=== PATIENT | male | born 1970 | race Caucasian/White ===

== ENCOUNTER 2017-06-21 09:50 | Emergency (ER) | payer OTHER, BC ==
[2017-06-21] MEDS ORDERED: Lidocaine 1% 20 ML MDV INJECT ONE (09:59)
--- NOTE | 2017-06-21 10:19 | EDM.PDOC ---
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 Past medical history: As per history of present illness and as reviewed below otherwise noncontributory. Surgical history: As per history of present illness and as reviewed below otherwise noncontributory. Social history: No reported history of drug or alcohol abuse. Family history: As per history of present illness and as reviewed below otherwise noncontributory. Physical exam: Patient states his last tetanus vaccine was 1 year ago. Alert and oriented answering questions appropriately shortness of breath noted is nontoxic in appearance HEENT: Atraumatic, normocehpalic, pupils reactive, negative for conjunctival pallor or scleral icterus, mucous membranes moist, throat clear, neck supple, nontender, trachea midline. Lungs: Clear to auscultation, breath sounds equal bilaterally, chest non tender. Heart: S1S2, regular, negative for clicks, rubs, or JVD. Abdomen: Soft, nondistended, nontender. Negative for masses or hepatossplenmegaly. Negative for costovertebral tenderness. Pelvis: Stable nontender. Genitourinary: Deferred. Rectal: Deferred Extremities: Traumatic injury to the tip of his left third finger, bone is projecting past the skin, negative for cords or calf pain. Neurovascular unremarkable. Neuro: Awake, alert, oriented. Cranial nerves II through XII unremarkable. Cerebellum unremarkable. Motor and sensory unremarkable throughout. Exam nonfocal. Patient tolerated all procedures well, digital block successful for anesthesia effect. Area was then cleansed by the nurse Have contacted Dr. Karine Wilhelm who is in surgical unit at this time. She will come here when she is done in approximately 1-1/2 hours. Scrub nurses said that this needs to be repaired within 6 hours. Have discussed this with the patient and he is quite agreeable. Not having any pain at this time. Dr. Wilhelm is here and attending to this patient she has assummed his care Diagnostics: [X-ray third finger left hand] Therapeutics: [Digital block was placed to the base of the third finger left hand] Impression: [Amputation tip of finger] Plan: []Consult Dr. Wilhelm Discharge to home but per Dr. Wilhelm Placed on Keflex and [place] per Dr. Wilhelm Definitive disposition and diagnosis as appropriate pending reevaluation and review of above. Left Middle Finger Pain Score (Numeric/FACES): 2 - Related Data Allergies Allergy/AdvReac Type Severity Reaction Status Date / Time No Known Allergies Allergy Verified 06/21/17 09:55 Home Meds: Home Meds . [No Known Home Meds] 06/25/16 [History] Past Medical History - Past Health History Medical/Surgical History: Denies Medical/Surgical History HEENT History: Reports: None Cardiovascular History: Reports: None Respiratory History: Reports: None Gastrointestinal History: Reports: None Genitourinary History: Reports: None Musculoskeletal History: Reports: None Neurological History: Reports: None Psychiatric History: Reports: None Endocrine/Metabolic History: Reports: None - Infectious Disease History Infectious Disease History: Reports: None - Past Surgical History Male Surgical History: Reports: Vasectomy Social & Family History - Family History Family Medical History: Noncontributory - Tobacco Use Smoking Status *Q: Current Every Day Smoker Years of Tobacco use: 20 Packs/Tins Daily: 1 - Caffeine Use Caffeine Use: Reports: None - Alcohol Use Days Per Week of Alcohol Use: 2 Number of Drinks Per Day: 2 Total Drinks Per Week: 4 - Recreational Drug Use Recreational Drug Use: No Review of Systems - Review of Systems Review Of Systems: ROS reveals no pertinent complaints other than HPI. ED EXAM, GENERAL - Physical Exam Exam: See Below (See dictation) Course - Vital Signs Last Recorded V/S: Last Vital Signs Temp 36.6 C 06/21/17 12:25 Pulse 69 06/21/17 12:25 Resp 18 06/21/17 12:25 BP 137/82 06/21/17 12:25 Pulse Ox 100 06/21/17 12:25 - Orders/Labs/Meds Meds: Medications Discontinued Medications Generic Name Dose Route Start Last Admin Trade Name Freq PRN Reason Stop Dose Admin Bupivacaine HCl 30 ml 06/21/17 13:26 06/21/17 14:16 Sensorcaine-Mpf 0.25% INJECT 06/21/17 13:27 30 ml ONETIME ONE Administration Bupivacaine HCl Confirm 06/21/17 13:27 06/21/17 14:16 Sensorcaine-Mpf 0.25% Administered 06/21/17 13:28 Not Given Dose 10 ml .ROUTE .STK-MED ONE Cefazolin Sodium/Dextrose 1 gm 50 mls @ 100 mls/hr 06/21/17 12:32 06/21/17 12 :47 / Premix IV 06/21/17 13:01 100 mls/hr ONETIME ONE Administration Lidocaine HCl 20 ml 06/21/17 09:59 06/21/17 10:50 Xylocaine 1% INJECT 06/21/17 10:00 20 ml ONETIME ONE Administration Departure - Departure Time of Disposition: 14:26 Disposition: Home, Self-Care 01 Condition: Good Clinical Impression: Fingertip amputation Qualifiers: Encounter type: initial encounter Qualified Code(s): S68.129A - Partial traumatic metacarpophalangeal amputation of unspecified finger, initial encounter - Discharge Information Referrals: PCP,None [Primary Care Provider] - Forms: ED Department Discharge Additional Instructions: The following information is given to patients seen in the emergency department who are being discharged to home. This information is to outline your options for follow-up care. We provide all patients seen in our emergency department with a follow-up referral. The need for follow-up, as well as the timing and circumstances, are variable depending upon the specifics of your emergency department visit. If you don't have a primary care physician on staff, we will provide you with a referral. We always advise you to contact your personal physician following an emergency department visit to inform them of the circumstance of the visit and for follow-up with them and/or the need for any referrals to a consulting specialist. The emergency department will also refer you to a specialist when appropriate. This referral assures that you have the opportunity for followup care with a specialist. All of these measure are taken in an effort to provide you with optimal care, which includes your followup. Under all circumstances we always encourage you to contact your private physician who remains a resource for coordinating your care. When calling for followup care, please make the office aware that this follow-up is from your recent emergency room visit. If for any reason you are refused follow-up, please contact the [facility] emergency department at and asked to speak to the emergency department charge nurse.
--- NOTE | 2017-06-21 10:37 | CR ---
EXAMINATION: Left hand, third digit HISTORY: Amputation of tip COMPARISON: 06/25/2016 TECHNIQUE: 3 views FINDINGS/IMPRESSION: There is soft tissue amputation of the distal aspect of the third digit with a m ildly comminuted fracture of the underlying tuft of the distal third phalanx. Remaining osseous struc tures and joint spaces appear intact. Bone mineralization is otherwise normal.
[2017-06-21] MEDS ORDERED: ceFAZolin 1 GM Vial IM ONE (11:51)
[2017-06-21] MEDS ORDERED: ceFAZolin 1 GM in Premix Bag 1 BAG IV ONE (12:32)
[2017-06-21] MEDS ORDERED: Bupivacaine 0.25% 10 ML SDV INJECT ONE (13:26)
[2017-06-21] MEDS ORDERED: Bupivacaine 0.25% 10 ML SDV ONE (13:27)
[2017-06-21 14:51] VITALS: BP 137/91
--- NOTE | 2017-06-22 17:52 | PCM.OPNOTE ---
- General Post-Op/Procedure Note Date of Surgery/Procedure: 06/21/17 Operative Procedure(s): revision amputation of left middle finger Pre Op Diagnosis: left middle finger tip amputation - transphalangeal partial Post-Op Diagnosis: Same Anesthesia Technique: Local Primary Surgeon: Stacey Wilhelm Complications: None Condition: Stable
--- NOTE | 2017-06-22 23:28 | OR ---
SURGEON: MODESTO SANDS MD DATE OF PROCEDURE: 06/21/2017 PREOPERATIVE DIAGNOSIS: Left middle finger tip amputation, transphalangeal, partial. POSTOPERATIVE DIAGNOSIS: Left middle finger tip amputation, transphalangeal, partial. PROCEDURE PERFORMED: Revision amputation of left middle finger with direct closure and traction neurectomies. COAT FITTER: None. ANESTHESIA: Local. INDICATIONS: Mr. Guthrie is a 46-year-old gentleman who crushed his left middle finger while working. Risks and benefits of revision amputation were discussed with him, considering this is an open fracture and there is no sufficient tissue for closure. Risks were including, but not limited to bleeding, infection, damage to underlying or overlying structures, possible need for future interventions and possible scarring. He would like to proceed. PROCEDURE IN DETAIL: After informed consent, the area was anesthetized and prepped and draped in normal fashion after a time-out was completed with the patient to confirm side and site. Once adequately irrigated, Littler scissor and pickup was used to transect and dissect circumferentially around the distal phalanx, taking care to leave the distal insertion of the extensor and flexor tendons intact. The distal neurovascular bundles were located on each side and traction neurectomies were performed. The rongeur was then used to trim back the bone itself and the volar skin flap was trimmed to fit to allow appropriate closure over the smooth bone. Again the nail bed was removed, and the insertions of the tendons were preserved. Once the wound was trimmed, an appropriate closure was appreciated. The wound was irrigated and then the skin was closed using 4-0 and 5-0 chromic stitches in a horizontal mattress and interrupted fashion. Once adequate contour was appreciated. The wound was then dressed with Xeroform, fluffs, and a Kerlix gauze dressing. He tolerated this well. All counts and needles were correct at the end of the case. FOLLOWUP INSTRUCTIONS: The patient will see us in approximately 10 days or sooner if any problems, questions, or concerns. He will be maintained on 10-pound weight limit until that time. Note was provided for him along with a prescription for [place] and Keflex. HEGGTHE / MODL /[id number]
== END 2017-06-21 14:44 | disposition home or self-care (01) ==
LOC: MW.ED 09:50
DX: S68.623A Partial traumatic transphalangeal amputation of left middle finger, initial encounter (principal); F17.210 Nicotine dependence, cigarettes, uncomplicated; W23.0XXA Caught, crushed, jammed, or pinched between moving objects, initial encounter
CPT/HCPCS: 26951; 73140; 96365; 99284; J0690; 99283

== ENCOUNTER 2017-08-29 15:46 | Emergency (ER) | payer OTHER, BC ==
[2017-08-29] MEDS ORDERED: Ketorolac 60 MG/2 ML SDV IM ONE (16:09)
--- NOTE | 2017-08-29 16:16 | EDM.PDOC ---
ED HPI GENERAL MEDICAL PROBLEM - General Chief Complaint: Upper Extremity Injury/Pain Stated Complaint: LEFT SHOULDER PAIN Time Seen by Provider: 08/29/17 16:05 - History of Present Illness INITIAL COMMENTS - FREE TEXT/NARRATIVE: HISTORY AND PHYSICAL: History of present illness: The patient is a 47-year-old male who presents with complaints of left shoulder pain that started while he was doing a maneuver at work moving a wench. The patient is right-hand dominant and tells me that he has had trouble with that left shoulder in the past and was told that he had a third degree rotator cuff tear and AC separation. He has no numbness or tingling or weakness in that left upper extremity and complains of only pain at the left shoulder. Otherwise he has no systemic complaints and was in his usual state of good health before this event. With the patient's prior history of the third degree rotator cuff tear and AC separation he was told by a surgeon that he could have surgical repair or he could just continue with knowledge of this information and just be careful with his activities. He opted not to have surgery. Review of systems: As per history of present illness and below otherwise all systems reviewed and negative. Past medical history: As per history of present illness and as reviewed below otherwise noncontributory. Surgical history: As per history of present illness and as reviewed below otherwise noncontributory. Social history: No reported history of drug or alcohol abuse. Family history: As per history of present illness and as reviewed below otherwise noncontributory. Physical exam: Gen.: Well-developed thin man who is nontoxic and vital signs reviewed by me HEENT: Atraumatic, normocephalic, negative for conjunctival pallor or scleral icterus, mucous membranes moist, throat clear, neck supple, nontender, trachea midline. Lungs: Clear to auscultation, breath sounds equal bilaterally, chest nontender. Heart: S1S2, regular rate and rhythm no overt murmurs. Abdomen: Soft, nondistended, nontender. NABS Pelvis: Deferred Genitourinary: Deferred. Rectal: Deferred. Extremities: Atraumatic appearing with a very prominent distal clavicle seen on the left that the patient tells me is not new or different from old, no clinical dislocation no soft tissue swelling erythema or joint effusion and no palpable bony tenderness is appreciated in the clavicle or the proximal humerus or scapula. On passive range of motion the patient is able to flex and extend at the elbow as well as touch the contralateral shoulder. All other extremities have full range of motion without defects or deficits in the legs are, negative for cords or calf pain. Neurovascular unremarkable. Neuro: Awake, alert, oriented. Cranial nerves II through XII unremarkable. Cerebellum unremarkable. Motor and sensory unremarkable throughout. Exam nonfocal. Diagnostics: X-ray left shoulder Therapeutics: Toradol The patient states that he does not want a muscle relaxer and he definitely does not want any prescriptions for home as he says "I will not take them". Advised him on follow-up with orthopedics clinic as well as ice for 24 and switching to heat. Impression: Left shoulder injury/strain with history of chronicAC separation and rotator cuff injury Definitive disposition and diagnosis as appropriate pending reevaluation and review of above. Left Suprapubic Pain Score (Numeric/FACES): 4 - Related Data Allergies Allergy/AdvReac Type Severity Reaction Status Date / Time No Known Allergies Allergy Verified 08/29/17 15:56 Home Meds: Home Meds . [No Known Home Meds] 06/25/16 [History] Past Medical History - Past Health History Medical/Surgical History: Denies Medical/Surgical History HEENT History: Reports: None Cardiovascular History: Reports: None Respiratory History: Reports: None Gastrointestinal History: Reports: None Genitourinary History: Reports: None Musculoskeletal History: Reports: None, Other (See Below) Other Musculoskeletal History: hx of dislocating left shoulder Neurological History: Reports: None Psychiatric History: Reports: None Endocrine/Metabolic History: Reports: None - Infectious Disease History Infectious Disease History: Reports: None - Past Surgical History Male Surgical History: Reports: Vasectomy Social & Family History - Family History Family Medical History: Noncontributory - Tobacco Use Smoking Status *Q: Current Every Day Smoker Years of Tobacco use: 20 Packs/Tins Daily: 1 - Caffeine Use Caffeine Use: Reports: Coffee - Alcohol Use Days Per Week of Alcohol Use: 2 Number of Drinks Per Day: 2 Total Drinks Per Week: 4 - Recreational Drug Use Recreational Drug Use: No Review of Systems - Review of Systems Review Of Systems: ROS reveals no pertinent complaints other than HPI. ED EXAM, GENERAL - Physical Exam Exam: See Below (see dictation) Course - Vital Signs Last Recorded V/S: Last Vital Signs Temp 36.3 C 08/29/17 16:01 Pulse 63 08/29/17 16:01 Resp 18 08/29/17 16:01 BP 123/82 08/29/17 16:01 Pulse Ox 97 08/29/17 16:01 - Orders/Labs/Meds Orders: Active Orders 24 hr Category Date Time Status Shoulder Comp Lt [CR] Stat Exams 08/29/17 16:10 Taken Meds: Medications Discontinued Medications Generic Name Dose Route Start Last Admin Trade Name Mono PRN Reason Stop Dose Admin Ketorolac Tromethamine 60 mg 08/29/17 16:09 08/29/17 16:17 Toradol IM 08/29/17 16:10 60 mg ONETIME ONE Administration Departure - Departure Time of Disposition: 17:23 Disposition: Home, Self-Care 01 Condition: Good Clinical Impression: Shoulder injury Qualifiers: Encounter type: initial encounter Laterality: left Qualified Code(s): S49.92XA - Unspecified injury of left shoulder and upper arm, initial encounter Left shoulder strain Qualifiers: Encounter type: initial encounter Qualified Code(s): S46.912A - Strain of unspecified muscle, fascia and tendon at shoulder and upper arm level, left arm , initial encounter - Discharge Information Referrals: PCP,None [Primary Care Provider] - Forms: ED Department Discharge Additional Instructions: The following information is given to patients seen in the emergency department who are being discharged to home. This information is to outline your options for follow-up care. We provide all patients seen in our emergency department with a follow-up referral. The need for follow-up, as well as the timing and circumstances, are variable depending upon the specifics of your emergency department visit. If you don't have a primary care physician on staff, we will provide you with a referral. We always advise you to contact your personal physician following an emergency department visit to inform them of the circumstance of the visit and for follow-up with them and/or the need for any referrals to a consulting specialist. The emergency department will also refer you to a specialist when appropriate. This referral assures that you have the opportunity for followup care with a specialist. All of these measure are taken in an effort to provide you with optimal care, which includes your followup. Under all circumstances we always encourage you to contact your private physician who remains a resource for coordinating your care. When calling for followup care, please make the office aware that this follow-up is from your recent emergency room visit. If for any reason you are refused follow-up, please contact the [facility] emergency department at and ask to speak to the emergency department charge nurse. [facility]--Orthopedic clinic Professional [address] [address] Use [id number] ibuprofen/Aleve for discomfort and inflammation and use ice to the area for the next 24 hours and then switch to heat. Try to do stretching exercises to open up the area and return to ER as needed and as discussed. He would like to follow this up please contact her orthopedic clinic for further care and evaluation. - My Orders Last 24 Hours: My Active Orders 08/29/17 16:10 Shoulder Comp Lt [CR] Stat - Assessment/Plan Last 24 Hours: My Active Orders 08/29/17 16:10 Shoulder Comp Lt [CR] Stat
[2017-08-29 17:31] VITALS: BP 126/72
--- NOTE | 2017-08-30 10:54 | CR ---
EXAM DATE: 08/29/17 PATIENT'S AGE: 47 Patient: CRUZ TREJO Facility: [place], [place] Site . Site : 1970 Study: XRay Shoulder [id number] 4:56:33 PM Ordering Physician: Jacob Bruce Final Report: INDICATION: Shoulder Pain from repetitive motion at work. Previous injury 2004 TECHNIQUE: Shoulder radiograph 3 views left COMPARISON: None FINDINGS: Bones: No acute fractures or aggressive bone lesions are identified. Joints: The glenohumeral is unremarkable. Cephalad displacement of the clavicle and widening of the AC joint are noted with calcification of the coracoclavicular ligaments indicating a chronic injury. Soft tissues: Unremarkable. The visualized hemithorax is unremarkable in appearance. No radiopaque foreign bodies are seen. IMPRESSION: 1. No acute osseous injuries or abnormalities are noted. Dictated by Omega Costa MD @ 08/29/2017 5:17:19 PM Dictated by: Omega Costa MD @ 08/29/2017 17:17:22 (Electronic Signature) Report Signed by Proxy. [facility] L[facility]OUR[facility] MEM[facility]IAL HOSPITALKendra
== END 2017-08-29 17:27 | disposition home or self-care (01) ==
LOC: MW.ED 15:46
DX: S46.912A Strain of unspecified muscle, fascia and tendon at shoulder and upper arm level, left arm, initial encounter (principal); F17.210 Nicotine dependence, cigarettes, uncomplicated; X58.XXXA Exposure to other specified factors, initial encounter
CPT/HCPCS: 73030; 96372; 99283; J1885